=== PATIENT | female | born 1955 | race Two or more races ===

== ENCOUNTER → 2016-09-14 | Outpatient (CLI) | payer OTHER | END | disposition home or self-care (01) | LOC: LAB 08:00 | PROVIDERS: ATTEND Internal Medicine Cardiovascular Disease | DX: E78.01 Familial hypercholesterolemia (principal); Z83.42 Family history of familial hypercholesterolemia | CPT/HCPCS: 36415 ==

== ENCOUNTER → 2016-11-29 | Outpatient (CLI) | payer OTHER | END | disposition home or self-care (01) | LOC: Rad HDHVI 15:28 | PROVIDERS: ATTEND Internal Medicine Cardiovascular Disease | DX: R07.9 Chest pain, unspecified (principal) | CPT/HCPCS: 93306 ==

== ENCOUNTER → 2019-04-30 | Outpatient (CLI) | payer OTHER ==
[2019-04-30 10:29] LABS: Basophils # (auto) 0.1 uL; Basophils % (auto) 0.7 % (0.0-2.0); Eosinophils # (auto) 0.3 uL; Eosinophils % (auto) 2.9 % (0.0-7.0); Hematocrit 41.9 % (36.0-46.0); Lymphocytes # (auto) 3.2 uL; Lymphocytes % (auto) 35.4 % (10.0-50.0); Mean Corpuscular Hemoglobin 28.8 pg (28.0-32.0); Mean Corpuscular Hgb Conc. 33.4 g/dL (32.0-36.0); Mean Corpuscular Volume 86.2 fL (80.0-100.0); Monocytes # (auto) 0.5 uL; Monocytes % (auto) 5.8 % (0.0-12.0); Neutrophils % (auto) 55.2 % (37.0-80.0); Nucleated Red Blood Cells % 0.1 %; Platelet Count (auto) 227 10^3/uL (140-450); Red Blood Cells 4.86 10^6/uL (4.0-5.20); Red Cell Distribution Width 13.3 % (11.8-14.3)
[2019-04-30 10:49] LABS: Urine WBC None Seen /hpf (0 - 5)
[2019-04-30 11:02] LABS: Albumin 3.6 g/dL (3.4-5.0)
[2019-04-30 11:09] LABS: BUN/Creatinine Ratio 28.1; Bilirubin, Total 0.6 mg/dL (0.2-1.0); Calcium 10.5 mg/dL (8.5-10.1); Total Protein 8.3 g/dL (6.4-8.2)
[2019-04-30 11:22] LABS: Urine Bacteria FEW /hpf (None Seen); Urine Blood Negative /uL (Negative); Urine Mucus FEW (None Seen); Urine Specific Gravity 1.023 (1.001-1.035)
== END | disposition home or self-care (01) ==
LOC: LAB 09:39
PROVIDERS: ATTEND Internal Medicine
DX: Z12.11 Encounter for screening for malignant neoplasm of colon (principal); E11.9 Type 2 diabetes mellitus without complications; I10 Essential (primary) hypertension; E78.5 Hyperlipidemia, unspecified
CPT/HCPCS: 36415; 80053; 80061; 81001; 82043; 82306; 83036; 84443; 85025

== ENCOUNTER → 2019-05-06 | Outpatient (CLI) | payer OTHER | END | disposition home or self-care (01) | LOC: LAB 13:35 | PROVIDERS: ATTEND Internal Medicine | DX: Z12.11 Encounter for screening for malignant neoplasm of colon (principal); E11.9 Type 2 diabetes mellitus without complications; E78.5 Hyperlipidemia, unspecified; I10 Essential (primary) hypertension | CPT/HCPCS: 82270 ==

== ENCOUNTER → 2019-05-28 | Outpatient (CLI) | payer OTHER ==
[2019-05-28 12:41] LABS: Albumin 3.5 g/dL (3.4-5.0); Bilirubin, Direct 0.1 mg/dL (0-0.2); Bilirubin, Total 0.4 mg/dL (0.2-1.0); Total Protein 8.5 g/dL (6.4-8.2)
== END | disposition home or self-care (01) ==
LOC: LAB 11:41
PROVIDERS: ATTEND Internal Medicine
DX: E11.9 Type 2 diabetes mellitus without complications (principal); E78.5 Hyperlipidemia, unspecified
CPT/HCPCS: 36415; 80076

== ENCOUNTER → 2019-11-25 | Outpatient (CLI) | payer MEDICARE, OTHER ==
[2019-11-25 10:37] LABS: Albumin 3.4 g/dL (3.4-5.0); Calcium 9.3 mg/dL (8.5-10.1); Potassium 3.7 mmol/L (3.5-5.1)
[2019-11-25 10:44] LABS: BUN/Creatinine Ratio 23.7; Bilirubin, Total 0.5 mg/dL (0.2-1.0); Total Protein 8.4 g/dL (6.4-8.2)
== END | disposition home or self-care (01) ==
LOC: LAB 09:41
PROVIDERS: ATTEND Internal Medicine
DX: E11.9 Type 2 diabetes mellitus without complications (principal); Z12.11 Encounter for screening for malignant neoplasm of colon
CPT/HCPCS: 36415; 80053; 80061; 83036

== ENCOUNTER → 2019-11-28 | Outpatient (CLI) | payer MEDICARE, OTHER | END | disposition home or self-care (01) | LOC: LAB 15:05 | PROVIDERS: ATTEND Internal Medicine | DX: E11.9 Type 2 diabetes mellitus without complications (principal); Z12.11 Encounter for screening for malignant neoplasm of colon | CPT/HCPCS: 82270 ==

== ENCOUNTER → 2019-12-18 | Outpatient (CLI) | payer MEDICARE, OTHER | END | disposition home or self-care (01) | LOC: Rad HDHVI 15:55 | PROVIDERS: ATTEND Internal Medicine Cardiovascular Disease | DX: R06.02 Shortness of breath (principal); R07.9 Chest pain, unspecified; Z86.79 Personal history of other diseases of the circulatory system | CPT/HCPCS: 93306 ==

== ENCOUNTER → 2020-01-05 | Outpatient (CLI) | payer MEDICARE, OTHER ==
[~2020-01-05] VITALS: Ht 152.4 cm; Wt 68.5 kg
== END | disposition home or self-care (01) ==
LOC: Rad HDHVI 08:53
PROVIDERS: ATTEND Internal Medicine Cardiovascular Disease
DX: E11.9 Type 2 diabetes mellitus without complications (principal); R07.9 Chest pain, unspecified; R06.02 Shortness of breath; I10 Essential (primary) hypertension; E78.00 Pure hypercholesterolemia, unspecified
CPT/HCPCS: 78452; 93017; 96374; A9500

== ENCOUNTER → 2020-08-09 | Outpatient (CLI) | payer MEDICARE, OTHER | END | disposition home or self-care (01) | LOC: Rad HDHVI 09:03 | PROVIDERS: ATTEND Internal Medicine Cardiovascular Disease | DX: Z01.810 Encounter for preprocedural cardiovascular examination (principal); I70.0 Atherosclerosis of aorta; I51.7 Cardiomegaly; M47.814 Spondylosis without myelopathy or radiculopathy, thoracic region; M77.8 Other enthesopathies, not elsewhere classified | CPT/HCPCS: 71046 ==

== ENCOUNTER → 2020-10-18 | Outpatient (CLI) | payer MEDICARE, OTHER ==
[~2020-10-18] MED LIST: ASCO500T11 PO; ASPI-543 PO; ATEN-60 PO; CALC-400 PO; FOLI1TAB6 PO; INSLANTI SC; LOSA100T33 PO; MAGN400T28 PO; METF750T54 PO; MULT1TAB62 PO
[2020-10-18 08:50] VITALS: BP 140/73
[2020-10-18 09:01] VITALS: BP 156/81
[2020-10-18 11:59] LABS: Basophils # (auto) 0.1 10 ^3/uL (0-0.2); Basophils % (auto) 0.5 % (0.0-2.0); Eosinophils # (auto) 0.3 10 ^3/uL (0-0.8); Eosinophils % (auto) 3.4 % (0.0-7.0); Hematocrit 39.3 % (36.0-46.0); Hemoglobin 13.1 g/dL (12.2-16.2); Lymphocytes # (auto) 3.1 10 ^3/uL (0.4-5.4); Lymphocytes % (auto) 31.8 % (10.0-50.0); Mean Corpuscular Hemoglobin 29.2 pg (28.0-32.0); Mean Corpuscular Hgb Conc. 33.4 g/dL (32.0-36.0); Mean Corpuscular Volume 87.4 fL (80.0-100.0); Monocytes # (auto) 0.6 10 ^3/uL (0-1.3); Monocytes % (auto) 5.6 % (0.0-12.0); Neutrophils # (auto) 5.8 10 ^3/uL (1.6-8.6); Neutrophils % (auto) 58.7 % (37.0-80.0); Platelet Count (auto) 212 10^3/uL (140-450); Red Blood Cells 4.49 10^6/uL (4.0-5.20); Red Cell Distribution Width 13.2 % (11.8-14.3); White Blood Cell 9.9 10^3/uL (4.4-10.8)
[2020-10-18 12:11] LABS: Potassium 3.5 mmol/L (3.5-5.1)
[2020-10-18 12:17] LABS: Calcium 9.7 mg/dL (8.5-10.1)
[2020-10-18 12:35] LABS: Partial Thromboplastin Time 27.4 sec (23.0-31.2)
== END | disposition home or self-care (01) ==
LOC: Rad HDHVI 08:12
PROVIDERS: ATTEND Internal Medicine Cardiovascular Disease
DX: Z01.812 Encounter for preprocedural laboratory examination (principal); I11.0 Hypertensive heart disease with heart failure; I50.9 Heart failure, unspecified; R06.02 Shortness of breath; I20.9 Angina pectoris, unspecified
CPT/HCPCS: 36415; 80048; 85025; 85610; 85730; 93005; G0463

== ENCOUNTER 2020-10-21 08:06 | Day surgery (SDC) | payer MEDICARE, OTHER ==
[~2020-10-21] VITALS: Ht 152.4 cm; Wt 70.3 kg
[2020-10-21] MEDS ORDERED: fentaNYL CITRATE 100 MCG/2 ML VL ONE (10:48)
[2020-10-21] MEDS ORDERED: MIDAZOLAM HCL 1MG/1ML-2 ML VIAL ONE (10:48)
[2020-10-21] MEDS ORDERED: IOHEXOL 350 MG/ML 100ML IJ ONE (10:48)
[2020-10-21] MEDS ORDERED: ANGIOMAX 250 MG VIAL IV ONE (10:48)
[2020-10-21] MEDS ORDERED: SODIUM CHL 0.9% 50 ML ONE (10:48)
[2020-10-21] MEDS ORDERED: LIDOCAINE 2%HCL (LOCAL ANESTH.) INJ 20ML MDV ONE (10:48)
[2020-10-21] MEDS ORDERED: TICAGRELOR 90 MG TAB ONE (12:23)
[2020-10-21] MEDS ORDERED: ONDANSETRON HCL 4 MG/2 ML VIAL IV PRN (14:00)
[2020-10-21] MEDS ORDERED: HYDROcodone-ACET 5/325MG TAB PO PRN (14:00)
[2020-10-21] MEDS ORDERED: ACETAMINOPHEN 500 MG TAB PO PRN (14:00)
== END 2020-10-21 15:35 | disposition home or self-care (01) ==
LOC: CATH 08:06
PROVIDERS: ATTEND Internal Medicine Cardiovascular Disease
DX: R07.9 Chest pain, unspecified (principal); I25.10 Atherosclerotic heart disease of native coronary artery without angina pectoris; I10 Essential (primary) hypertension; E78.5 Hyperlipidemia, unspecified; E10.9 Type 1 diabetes mellitus without complications; E78.00 Pure hypercholesterolemia, unspecified; Z68.30 Body mass index [BMI] 30.0-30.9, adult; Z98.890 Other specified postprocedural states; Z79.4 Long term (current) use of insulin; Z79.82 Long term (current) use of aspirin; Z79.899 Other long term (current) drug therapy; Z20.822 Contact with and (suspected) exposure to COVID-19
CPT/HCPCS: 92978; 93456; 93571; C1751; C1760; C1769; C1874; C1887; C1894; C9600; J0583; J1644; J2250; J3010; Q9967; U0003; 99152; 99153

== ENCOUNTER → 2020-12-06 | Outpatient (CLI) | payer MEDICARE, OTHER | END | disposition home or self-care (01) | LOC: Rad HDHVI 09:56 | PROVIDERS: ATTEND Internal Medicine Cardiovascular Disease | DX: I10 Essential (primary) hypertension (principal); R06.02 Shortness of breath | CPT/HCPCS: 93306 ==

== ENCOUNTER → 2020-12-16 | Outpatient (CLI) | payer MEDICARE, OTHER ==
[~2020-12-16] VITALS: Ht 152.4 cm; Wt 70.3 kg
[~2020-12-16] MED LIST changes: +ADENOSINE 59 MG in GIVE UN-DILUTED 0 ML IV ONE; +ADENOSINE 90 MG/30 ML INJ IV ONE
== END | disposition home or self-care (01) ==
LOC: Rad HDHVI 08:59
PROVIDERS: ATTEND Internal Medicine Cardiovascular Disease
DX: I25.10 Atherosclerotic heart disease of native coronary artery without angina pectoris (principal); I10 Essential (primary) hypertension; E78.5 Hyperlipidemia, unspecified; E11.9 Type 2 diabetes mellitus without complications; R07.9 Chest pain, unspecified
CPT/HCPCS: 78452; 93005; 96374; 96375; A9500; J0153

== ENCOUNTER → 2021-10-24 | Outpatient (CLI) | payer MEDICARE, OTHER ==
[~2021-10-24] MED LIST changes: -ADENOSINE 59 MG in GIVE UN-DILUTED 0 ML IV ONE; -ADENOSINE 90 MG/30 ML INJ IV ONE
[2021-10-24 09:32] LABS: Urine Blood Negative /uL (Negative)
[2021-10-24 09:33] LABS: Basophils # (auto) 0 10 ^3/uL (0-0.2); Basophils % (auto) 0.5 % (0.0-2.0); Eosinophils # (auto) 0.3 10 ^3/uL (0-0.8); Eosinophils % (auto) 3.1 % (0.0-7.0); Hematocrit 39.7 % (36.0-46.0); Hemoglobin 13.2 g/dL (12.2-16.2); Lymphocytes # (auto) 2.9 10 ^3/uL (0.4-5.4); Lymphocytes % (auto) 31.4 % (10.0-50.0); Mean Corpuscular Hemoglobin 28.7 pg (28.0-32.0); Mean Corpuscular Hgb Conc. 33.3 g/dL (32.0-36.0); Mean Corpuscular Volume 86.2 fL (80.0-100.0); Monocytes # (auto) 0.5 10 ^3/uL (0-1.3); Monocytes % (auto) 5.7 % (0.0-12.0); Neutrophils # (auto) 5.5 10 ^3/uL (1.6-8.6); Neutrophils % (auto) 59.3 % (37.0-80.0); Red Cell Distribution Width 13.2 % (11.8-14.3); White Blood Cell 9.3 10^3/uL (4.4-10.8)
[2021-10-24 10:01] LABS: Albumin 3.3 g/dL (3.4-5.0); BUN/Creatinine Ratio 29.1; Bilirubin, Total 0.6 mg/dL (0.2-1.0); Calcium 9.7 mg/dL (8.5-10.1); Total Protein 7.9 g/dL (6.4-8.2)
[2021-10-24 11:02] LABS: Free T4 (Free Thyroxine) 1.09 ng/dL (0.89-1.76)
== END | disposition home or self-care (01) ==
LOC: LAB 08:41
PROVIDERS: ATTEND Internal Medicine Cardiovascular Disease
DX: D51.3 Other dietary vitamin B12 deficiency anemia (principal); D64.9 Anemia, unspecified; E11.9 Type 2 diabetes mellitus without complications; E55.9 Vitamin D deficiency, unspecified; I10 Essential (primary) hypertension; R00.2 Palpitations; R53.1 Weakness; R30.0 Dysuria
CPT/HCPCS: 36415; 80053; 80061; 81003; 82306; 82607; 83036; 84439; 84443; 85025

== ENCOUNTER → 2022-08-31 | Outpatient (CLI) | payer MEDICARE, OTHER ==
[~2022-08-31] VITALS: Ht 152.4 cm; Wt 70.3 kg
[~2022-08-31] MED LIST changes: +ADENOSINE 59 MG in GIVE UN-DILUTED 0 ML IV ONE; +ADENOSINE 90 MG/30 ML INJ IV ONE
== END | disposition home or self-care (01) ==
LOC: Rad HDHVI 12:45
PROVIDERS: ATTEND Internal Medicine Cardiovascular Disease
DX: I11.0 Hypertensive heart disease with heart failure (principal); I50.23 Acute on chronic systolic (congestive) heart failure; I25.10 Atherosclerotic heart disease of native coronary artery without angina pectoris; E78.5 Hyperlipidemia, unspecified; R07.9 Chest pain, unspecified; E11.9 Type 2 diabetes mellitus without complications; R06.02 Shortness of breath
CPT/HCPCS: 78452; 93005; 96374; 96375; A9500; J0153

== ENCOUNTER → 2022-09-01 | Outpatient (CLI) | payer MEDICARE, OTHER ==
[~2022-09-01] MED LIST changes: -ADENOSINE 59 MG in GIVE UN-DILUTED 0 ML IV ONE; -ADENOSINE 90 MG/30 ML INJ IV ONE
== END | disposition home or self-care (01) ==
LOC: Rad HDHVI 08:53
PROVIDERS: ATTEND Internal Medicine Cardiovascular Disease
DX: I10 Essential (primary) hypertension (principal); E78.5 Hyperlipidemia, unspecified
CPT/HCPCS: 93306

== ENCOUNTER → 2023-04-23 | Outpatient (CLI) | payer MEDICARE, OTHER ==
[~2023-04-23] MED LIST changes: +FOLI-119 PO; -FOLI1TAB6 PO
== END | disposition home or self-care (01) ==
LOC: Rad HDHVI 14:59
PROVIDERS: ATTEND Internal Medicine Cardiovascular Disease
DX: I10 Essential (primary) hypertension (principal); R07.89 Other chest pain
CPT/HCPCS: 93306

== ENCOUNTER → 2023-05-02 | Outpatient (CLI) | payer MEDICARE, OTHER ==
[~2023-05-02] MED LIST changes: +CHOL20006 PO; +CHOL20007 PO; +DICL1GEL59 EX; +INSLISPI SC; +METF-370 PO; +PANT40T PO; +ROSU10TA16 PO; +SACU1TAB PO; +TEMA15CA2 PO; +TICA1TAB PO; +TRIA75TA55 PO
[2023-05-02 09:55] VITALS: BP 146/67; PULSE 61; RESP 16; O2SAT 97
[2023-05-02 10:12] VITALS: BP 115/58; PULSE 66; RESP 16; O2SAT 97
== END | disposition home or self-care (01) ==
LOC: CHF HDHVI 09:43
PROVIDERS: ATTEND Internal Medicine Cardiovascular Disease
DX: Z01.818 Encounter for other preprocedural examination (principal); R94.31 Abnormal electrocardiogram [ECG] [EKG]; I10 Essential (primary) hypertension; R07.89 Other chest pain; R06.02 Shortness of breath
CPT/HCPCS: 93005; G0463

== ENCOUNTER 2023-05-03 09:10 | Day surgery (SDC) | payer MEDICARE, OTHER ==
[2023-05-02 11:39] LABS: INR 1.01 (0.9-1.15); Partial Thromboplastin Time 28.2 SEC (24.5-34.5); Prothrombin Time 10.6 sec (9.3-11.8)
[2023-05-02 11:47] LABS: Basophils # (auto) 0 10 ^3/uL (0-0.2); Basophils % (auto) 0.4 % (0.0-2.0); Eosinophils # (auto) 0.3 10 ^3/uL (0-0.8); Eosinophils % (auto) 3.1 % (0.0-7.0); Hematocrit 37.5 % (36.0-46.0); Hemoglobin 12.3 g/dL (12.2-16.2); Lymphocytes # (auto) 2.4 10 ^3/uL (0.4-5.4); Lymphocytes % (auto) 26.3 % (10.0-50.0); Mean Corpuscular Hgb Conc. 32.9 g/dL (32.0-36.0); Mean Corpuscular Volume 85.2 fL (80.0-100.0); Monocytes # (auto) 0.5 10 ^3/uL (0-1.3); Monocytes % (auto) 5.9 % (0.0-12.0); Neutrophils # (auto) 5.8 10 ^3/uL (1.6-8.6); Neutrophils % (auto) 64.3 % (37.0-80.0); Red Cell Distribution Width 13.1 % (11.8-14.3)
[2023-05-02 12:08] LABS: Alanine Aminotransferase 23 U/L (7-40); Albumin 4.5 g/dL (3.2-4.8); Alkaline Phosphatase 111 U/L (46-116); Anion Gap 6 (5-15); Aspartate Aminotransferase 28 U/L (13-40); Blood Urea Nitrogen 19 mg/dL (9-23); Calcium 9.5 mg/dL (8.5-10.1); Carbon Dioxide 31 mmol/L (20-30); Chloride 100 mmol/L (98-107); Glucose 347 mg/dL (74-106); Potassium 3.5 mmol/L (3.5-5.1); Sodium 137 mmol/L (136-145)
[2023-05-02 12:09] LABS: Bilirubin, Total 0.4 mg/dL (0.2-1.0); Total Protein 7.5 g/dL (5.7-8.2)
[~2023-05-03] VITALS: Ht 152.4 cm; Wt 69.4 kg
[2023-05-03] VITALS (8 sets, daily range): BP systolic 97–142; BP diastolic 31–51; PULSE 44–55; RESP 13–19; O2SAT 93–98
[2023-05-03] MEDS ORDERED: SODIUM CHL 0.9% 50 ML ONE (13:44)
[2023-05-03] MEDS ORDERED: LIDOCAINE 2%HCL (LOCAL ANESTH.) INJ 20ML MDV ONE (13:44)
[2023-05-03] MEDS ORDERED: fentaNYL CITRATE 100 MCG/2 ML VL ONE (13:44)
[2023-05-03] MEDS ORDERED: MIDAZOLAM HCL 2MG/2ML 2ml VIAL (1mg/ml) ONE (13:44)
[2023-05-03] MEDS ORDERED: ANGIOMAX 250 MG VIAL IV ONE (13:44)
[2023-05-03] MEDS ORDERED: IOHEXOL 350 MG/ML 100ML IJ ONE (13:45)
[2023-05-03] MEDS ORDERED: TICAGRELOR 60 MG TAB PO ONE (15:30)
== END 2023-05-03 17:15 | disposition home or self-care (01) ==
LOC: CATH 09:10
PROVIDERS: ATTEND Internal Medicine Cardiovascular Disease
DX: I25.10 Atherosclerotic heart disease of native coronary artery without angina pectoris (principal); R07.89 Other chest pain; Z95.1 Presence of aortocoronary bypass graft; Z79.01 Long term (current) use of anticoagulants; I10 Essential (primary) hypertension; Z79.899 Other long term (current) drug therapy; Z98.890 Other specified postprocedural states
CPT/HCPCS: 36415; 80053; 85025; 85610; 85730; 92920; 93458; C1725; C1887; C1894; J0583; J1644; J2250; J3010; Q9967; 99152

== ENCOUNTER → 2024-01-10 | Outpatient (CLI) | payer MEDICARE, OTHER ==
[~2024-01-10] MED LIST changes: -ASCO500T11 PO; -CHOL20007 PO; -LOSA100T33 PO; -METF750T54 PO
== END | disposition home or self-care (01) ==
LOC: Rad HDHVI 15:00
PROVIDERS: ATTEND Internal Medicine Cardiovascular Disease
DX: I34.0 Nonrheumatic mitral (valve) insufficiency (principal); I10 Essential (primary) hypertension; R07.89 Other chest pain
CPT/HCPCS: 93306

== ENCOUNTER → 2024-01-14 | Outpatient (CLI) | payer MEDICARE, OTHER ==
[~2024-01-14] VITALS: Ht 152.4 cm; Wt 69.4 kg
[~2024-01-14] MED LIST changes: +ADENOSINE 58 MG in GIVE UN-DILUTED 0 ML IV ONE; +ADENOSINE 90 MG/30 ML INJ IV ONE
== END | disposition home or self-care (01) ==
LOC: Rad HDHVI 08:42
PROVIDERS: ATTEND Internal Medicine Cardiovascular Disease
DX: I25.10 Atherosclerotic heart disease of native coronary artery without angina pectoris (principal); I25.2 Old myocardial infarction; I11.0 Hypertensive heart disease with heart failure; I50.9 Heart failure, unspecified; E78.5 Hyperlipidemia, unspecified; E11.65 Type 2 diabetes mellitus with hyperglycemia; R07.89 Other chest pain; Z82.49 Family history of ischemic heart disease and other diseases of the circulatory system
CPT/HCPCS: 78452; 93005; 96374; 96375; A9500; J0153

== ENCOUNTER 2025-02-04 14:49 | Outpatient (CLI) | payer MEDICARE, OTHER ==
[~2025-02-04 14:49] MED LIST changes: -ADENOSINE 58 MG in GIVE UN-DILUTED 0 ML IV ONE; -ADENOSINE 90 MG/30 ML INJ IV ONE
[2025-02-04] MEDS ORDERED: READI-CAT 2 (BARIUM SULF)(VANILLA SMOOTHIE) 450ML ONE (14:56)
--- NOTE | 2025-02-04 21:32 | DVH ---
CLINICAL HISTORY: ABD PAIN TECHNIQUE: CT of the abdomen and pelvis was performed without intravenous contrast. This exam was per formed according to our departmental dose optimization program. Up-to-date CT equipment and radiation dose reduction techniques are utilized as appropriate. 9.09 CTDI: 9.09 DLP: 427.02 WID: COMPARISON: None FINDINGS: Lower Thorax: Normal-sized heart without pericardial effusion. Sub 5 mm nodules in the left lower lob e on series 2 images 1, 2, and 3. Mild linear bibasilar atelectasis or scarring. Liver and Biliary system: Mild hepatomegaly measuring 20 cm craniocaudal. No definite hepatic lesion. Cholelithiasis and a normal caliber gallbladder. There is no biliary ductal dilatation. Spleen: Unremarkable. Adrenal Glands and Kidneys: Unremarkable. Pancreas and Retroperitoneum: Atrophic pancreas. There is no retroperitoneal lymphadenopathy. Aorta and Major Vessels: Aortoiliac vessels are normal in caliber containing mild calcified atheroscl erotic plaque. Bowel, Mesentery and Peritoneal space: Normal caliber small and large bowel. There is mild colonic di verticulosis. Normal appendix. There is oral contrast in the stomach and most of the small bowel. The re is no free air or fluid collection. Pelvis: Prior hysterectomy. Urinary bladder is mildly distended. There is no pelvic lymphadenopathy. Abdominal wall and Osseous Structures: There is chondrocalcinosis of the pubic symphysis. Multilevel lower thoracic and lumbar spondylosis. No destructive osseous lesion. There is multilevel ossificatio n of the posterior longitudinal ligament in the lower thoracic and lumbar spine. IMPRESSION: No bowel obstruction, fluid collection, or free air. Normal appendix. Mild colonic diverticulosis. Cholelithiasis. Mild hepatomegaly. Sub 5 mm left lower lobe pulmonary nodules, nonspecific. Follow-up CT chest could be obtained in 1 ye ar if there are risk factors for pulmonary malignancy.
== END 2025-02-04 17:00 | disposition home or self-care (01) ==
LOC: Rad HDHVI 14:49
PROVIDERS: ATTEND Internal Medicine Cardiovascular Disease
DX: K57.30 Diverticulosis of large intestine without perforation or abscess without bleeding (principal); K80.20 Calculus of gallbladder without cholecystitis without obstruction; R16.0 Hepatomegaly, not elsewhere classified; N32.89 Other specified disorders of bladder; K86.89 Other specified diseases of pancreas; R10.9 Unspecified abdominal pain; I70.0 Atherosclerosis of aorta; M11.20 Other chondrocalcinosis, unspecified site; M47.816 Spondylosis without myelopathy or radiculopathy, lumbar region; M67.89 Other specified disorders of synovium and tendon, multiple sites
CPT/HCPCS: 74176

== ENCOUNTER 2025-03-23 08:46 | Outpatient (CLI) | payer MEDICARE, OTHER ==
[~2025-03-23] VITALS: Ht 152.4 cm; Wt 69.9 kg
[2025-03-23] MEDS ORDERED: ADENOSINE 90 MG/30 ML INJ IV ONE (09:39)
[2025-03-23] MEDS ORDERED: ADENOSINE 59 MG in GIVE UN-DILUTED 0 ML IV ONE (10:45)
== END 2025-03-23 17:00 | disposition home or self-care (01) ==
LOC: Rad HDHVI 08:46
PROVIDERS: ATTEND Internal Medicine Cardiovascular Disease
DX: Z01.810 Encounter for preprocedural cardiovascular examination (principal); I49.1 Atrial premature depolarization; I11.0 Hypertensive heart disease with heart failure; I50.33 Acute on chronic diastolic (congestive) heart failure; I25.10 Atherosclerotic heart disease of native coronary artery without angina pectoris; R00.0 Tachycardia, unspecified; R06.00 Dyspnea, unspecified; E11.40 Type 2 diabetes mellitus with diabetic neuropathy, unspecified; E78.00 Pure hypercholesterolemia, unspecified; R07.89 Other chest pain; Z82.49 Family history of ischemic heart disease and other diseases of the circulatory system
CPT/HCPCS: 78452; 93017; A9500; J0153

== ENCOUNTER 2025-04-08 13:38 | Outpatient (CLI) | payer MEDICARE, OTHER ==
--- NOTE | 2025-04-09 07:29 | DVHSR ---
APPROVED REPORT EXAM: Two-dimensional and M-mode echocardiogram with Doppler and color Doppler. DIMENSIONS LVDd3.3 (3.8-5.7cm)LA (2D)3.8 (1.9-4.0cm)Aortic Root3.1 (2.0-3.7cm) LVDs2.2 (2.5-4.0cm)LA (MM) (1.9-4.0cm)Aortic Cusp Exc1.6 (1.5-2.0cm) EF (%) 60.0 (55-70%)Rt. Atrium2.6 (1.9-4.0cm)Asc. Aorta3.7 cm IVSd1.1 (0.7-1.1cm)RV (D)3.1 (1.8-2.4cm) PWd1.0 (0.7-1.1cm) Mitral Valve MitralMitral Stenosis E wave0.70m/sMV Mean GR.mmHg A wave0.72m/sMV Peak GR.28mmHg E/A ratio1.02D MVAcm2 DECEL [id number] 1/2 [place] Aortic Valve Aortic ValveAortic Stenosis V10.89m/Armand Mean GR.2mmHg V21.31m/Armand Peak GR.7mmHg LVOT Diameter2.1 (1.8-2.4cm)Doppler AVA2.35cm2 Pulmonic Valve V21.00m/s Tricuspid Valve TR Velocity1.91m/s [id number] LEFT VENTRICLE The left ventricle is normal size. The left ventricle is normal in structure and function. The Ejection Fraction is within normal limits. The Ejection Fraction is 60-65%. RIGHT VENTRICLE The right ventricle is normal size. ATRIA The left atrial size is normal. The right atrium size is normal. MITRAL VALVE The mitral valve is normal in structure and function. Mitral annular calcification is mild. Mitral regurgitation is trace. PULMONIC VALVE The pulmonic valve is not well visualized. TRICUSPID VALVE The tricuspid valve is grossly normal. There is trace tricuspid regurgitation. AORTIC VALVE The aortic valve opens well. No aortic regurgitation is present. GREAT VESSELS The aortic root is normal size. PERICARDIAL EFFUSION There is no pericardial effusion. Other Information Technically limited study due to body habitus. Conclusion MILD MAC EF >55%
== END 2025-04-09 17:00 | disposition home or self-care (01) ==
LOC: Rad HDHVI 13:38
PROVIDERS: ATTEND Internal Medicine Cardiovascular Disease
DX: I34.81 Nonrheumatic mitral (valve) annulus calcification (principal); I11.0 Hypertensive heart disease with heart failure; I50.33 Acute on chronic diastolic (congestive) heart failure
CPT/HCPCS: 93306